=== PATIENT | female | born 1925 | race Caucasian/White ===

== ENCOUNTER 2016-09-21 15:49 | Emergency (ER) | payer MEDICARE ==
[2016-09-21] MEDS ORDERED: SODIUM CHLORIDE 0.9% 1,000 ML IV STA (17:28)
--- NOTE | 2016-09-21 17:42 | ED ---
Nausea/Vomiting/Diarrhea HPI - General Chief complaint: Nausea/Vomiting/Diarrhea Stated complaint: diarrhea Time Seen by Provider: 09/21/16 17:22 Source: patient, RN notes reviewed Mode of arrival: wheelchair Limitations: no limitations - History of Present Illness Initial comments: 89-year-old female presents emergency Department chief complaint of diarrhea. Patient states that she has had diarrhea since 3:00 this morning. Patient states that she is actually slowing down this time. Patient states she is just concerned that she's had diarrhea in the past in which she was admitted for. Patient states that she's not had any recent antibiotics or recent traveling. Patient denies fever, chills, chest pain. Patient has no difficulty or dysuria. Patient offers no complaints. She states that she was told to take Imodium in the past though she states that she could not find any so she took some Kaopectate. - Related Data Home Medications Medication Instructions Recorded Confirmed Furosemide [Furosemide] 40 mg PO DAILY 04/19/16 09/21/16 Losartan Potassium [Losartan 100 mg PO DAILY 04/19/16 09/21/16 Potassium] Meloxicam [Meloxicam] 15 mg PO DAILY 04/19/16 09/21/16 Alendronate Sodium [Fosamax] 70 mg PO TU 09/21/16 09/21/16 Aspirin EC [Ecotrin Low Dose] 81 mg PO DAILY 09/21/16 09/21/16 Bismuth Subsalicylate [Kaopectate] 262 mg PO DAILY PRN 09/21/16 09/21/16 Docusate [Colace] 100 mg PO BID PRN 09/21/16 09/21/16 Ergocalciferol [Vitamin D2 50,000 unit PO WE 09/21/16 09/21/16 (DRISDOL)] Lansoprazole [Prevacid] 30 mg PO BID 09/21/16 09/21/16 Multivitamins, Thera [Multivitamin] 1 tab PO DAILY 09/21/16 09/21/16 Allergies Allergy/AdvReac Type Severity Reaction Status Date / Time Sulfa (Sulfonamide Allergy Rash/Hives Verified 09/21/16 17:33 Antibiotics) Review of Systems ROS Statement: Those systems with pertinent positive or pertinent negative responses have been documented in the HPI. ROS Other: All systems not noted in ROS Statement are negative. Past Medical History Past Medical History: Heart Failure, Hypertension Additional Past Medical History / Comment(s): osteoporosis History of Any Multi-Drug Resistant Organisms: None Reported Past Surgical History: Hernia Repair, Hysterectomy, Joint Replacement, Orthopedic Surgery Past Psychological History: No Psychological Hx Reported Smoking Status: Never smoker Past Alcohol Use History: None Reported Past Drug Use History: None Reported General Exam Limitations: no limitations General appearance: alert, in no apparent distress Head exam: Present: atraumatic, normocephalic, normal inspection Respiratory exam: Present: normal lung sounds bilaterally. Absent: respiratory distress, wheezes, rales, rhonchi, stridor Cardiovascular Exam: Present: regular rate, normal rhythm, normal heart sounds. Absent: systolic murmur, diastolic murmur, rubs, gallop, clicks GI/Abdominal exam: Present: soft, normal bowel sounds. Absent: distended, tenderness, guarding, rebound, rigid Skin exam: Present: warm, dry, intact, normal color. Absent: rash Course Vital Signs 09/21/16 09/21/16 09/21/16 15:53 18:30 20:27 Temperature 97.1 F L Pulse Rate 84 82 81 Respiratory 20 18 18 Rate Blood Pressure 148/70 138/82 146/84 O2 Sat by Pulse 98 98 96 Oximetry Medical Decision Making - Medical Decision Making 89-year-old female presented for diarrhea. Patient is requesting to leave at this time. Patient lives were difficult to draw in which he took well. Patient 's comp his back along with his urinalysis which shows no major acute abnormality's. Patient will be discharged with recommended close follow-up and return parameters. - Lab Data Result diagrams: 09/21/16 20:25 09/21/16 19:00 Lab Results 09/21/16 09/21/16 09/21/16 Range/Units 18:33 19:00 20:25 WBC 11.9 H (3.8-10.6) k/uL RBC 5.44 H (3.80-5.40) m/uL Hgb 16.1 H (11.4-16.0) gm/dL Hct 51.3 H (34.0-46.0) % MCV 94.3 (80.0-100.0) fL MCH 29.6 (25.0-35.0) pg MCHC 31.4 (31.0-37.0) g/dL RDW 13.0 (11.5-15.5) % Plt Count 216 (150-450) k/uL Neutrophils % 84 % Lymphocytes % 9 % Monocytes % 4 % Eosinophils % 1 % Basophils % 2 % Neutrophils # 10.0 H (1.3-7.7) k/uL Lymphocytes # 1.1 (1.0-4.8) k/uL Monocytes # 0.4 (0-1.0) k/uL Eosinophils # 0.1 (0-0.7) k/uL Basophils # 0.2 (0-0.2) k/uL Sodium 140 (137-145) mmol/L Potassium 4.9 (3.5-5.1) mmol/L Chloride 105 (98-107) mmol/L Carbon Dioxide 25 (22-30) mmol/L Anion Gap 10 mmol/L BUN 24 H (7-17) mg/dL Creatinine 0.51 L (0.52-1.04) mg/dL Est GFR (MDRD) Af Amer >60 (>60 ml/min/1.73 sqM) Est GFR (MDRD) Non-Af >60 (>60 ml/min/1.73 sqM) Glucose 82 (74-99) mg/dL Calcium 8.3 L (8.4-10.2) mg/dL Total Bilirubin 0.7 (0.2-1.3) mg/dL AST 30 (14-36) U/L ALT 31 (9-52) U/L Alkaline Phosphatase 118 (38-126) U/L Total Protein 6.6 (6.3-8.2) g/dL Albumin 3.6 (3.5-5.0) g/dL Amylase 45 (30-110) U/L Lipase 53 (23-300) U/L Urine Color Yellow Urine Appearance Clear (Clear) Urine pH 5.5 (5.0-8.0) Ur Specific [place] 1.015 (1.001-1.035) Urine Protein Negative (Negative) Urine Glucose (UA) Negative (Negative) Urine Ketones Negative (Negative) Urine Blood Negative (Negative) Urine Nitrate Negative (Negative) Urine Bilirubin Negative (Negative) Urine Urobilinogen <2.0 (<2.0) mg/dL Ur Leukocyte Esterase Negative (Negative) Disposition Clinical Impression: Diarrhea Disposition: HOME SELF-CARE Condition: Stable Instructions: Acute Diarrhea (ED) Additional Instructions: Please return to the Emergency Department if symptoms worsen or any other concerns. Referrals: Kareem Dawkins MD [Primary Care Provider] - 1-2 days
[2016-09-21 18:43] LABS: Appearance,Urine Clear (Clear); Bilirubin,Urine Negative (Negative); Glucose,Urine (UA) Negative (Negative); Ketones,Urine Negative (Negative); Leukocyte Esterase,Urine Negative (Negative); Nitrite,Urine Negative (Negative); PH, Urine 5.5 (5.0-8.0); Protein,Urine Negative (Negative); Specific Gravity,Urine 1.015 (1.001-1.035); UA Billing (MACRO vs. MICRO) CHEM; Urobilinogen,Urine <2.0 mg/dL (<2.0)
[2016-09-21 20:13] LABS: ALT 31 U/L (9-52); AST 30 U/L (14-36); Alkaline Phosphatase 118 U/L (38-126); Amylase 45 U/L (30-110); Anion Gap 10 mmol/L; Blood Urea Nitrogen 24 mg/dL (7-17); Calcium 8.3 mg/dL (8.4-10.2); Carbon Dioxide 25 mmol/L (22-30); Chloride 105 mmol/L (98-107); Glucose 82 mg/dL (74-99); Non-African American GFR(MDRD) >60 (>60 ml/min/1.73 sqM); Potassium 4.9 mmol/L (3.5-5.1); Sodium 140 mmol/L (137-145); Total Bilirubin 0.7 mg/dL (0.2-1.3); Total Protein 6.6 g/dL (6.3-8.2)
[2016-09-21 20:37] LABS: Basophils # (A) 0.2 k/uL (0-0.2); Basophils % (A) 2 %; CH 30.1; CHCM 32.1; Eosinophils # (A) 0.1 k/uL (0-0.7); Eosinophils % (A) 1 %; HCT 51.3 % (34.0-46.0); HDW 2.52; HGB 16.1 gm/dL (11.4-16.0); Luc # (Auto) 0.09; Luc % (Auto) 1; Lymphocytes # (A) 1.1 k/uL (1.0-4.8); Lymphocytes % (A) 9 %; MCH 29.6 pg (25.0-35.0); MCHC 31.4 g/dL (31.0-37.0); MCV 94.3 fL (80.0-100.0); Mean Platelet Volume 8.6; Monocytes # (A) 0.4 k/uL (0-1.0); Monocytes % (A) 4 %; Neutrophils % (A) 84 %; RBC 5.44 m/uL (3.80-5.40); WBC 11.9 k/uL (3.8-10.6); WBC (Perox) 12.12
[2016-09-21 21:06] VITALS: BP 142/82; PULSE 84; RESP 20; TEMP 98
== END 2016-09-21 20:50 | disposition home or self-care (01) ==
LOC: EC 15:49
DX: R19.7 Diarrhea, unspecified (principal); I10 Essential (primary) hypertension; I50.9 Heart failure, unspecified; M81.0 Age-related osteoporosis without current pathological fracture; Z88.2 Allergy status to sulfonamides; Z79.82 Long term (current) use of aspirin; Z79.899 Other long term (current) drug therapy
CPT/HCPCS: 36415; 80053; 81003; 82150; 83690; 85025; 96360; 99284